=== PATIENT | female | born 1985 | race Hispanic/Latino ===

== ENCOUNTER 2018-09-19 10:12 | Day surgery (SDC) | payer BC ==
[2018-09-19 10:45] VITALS: BMI 35.9
[2018-09-19 10:49] VITALS: BP 123/92; TEMP 98.2
--- NOTE | 2018-09-19 11:56 | PDOC.LDHP ---
Labor and Delivery H&P Chief complaint: contractions HPI: 33 y/o at 39w2d, patient of Dr. Anne, presents with ctx q 5-10 mins. Denies VB, LOF, or decreased FM. ROS neg for HEENT, cv, pulm, gi, gu, neuro, psych, skin, musculoskeletal or constitutional symptoms other than mentioned above. OB History Details: 4 prior term SVDs Current complications: none Past Medical History: Migraines Current medications: pre-arslan vitamins Previous surgical history: none Allergies/Adverse Reactions: Allergies Allergy/AdvReac Type Severity Reaction Status Date / Time No Known Allergies Allergy Verified 09/19/18 10:48 Social history: none - Physical Exam Vital signs reviewed and normal: yes General: NAD, resting Lungs: nonlabored breathing Abdomen: gravid Extremeties: no edema FHT: category 1 (140s, mod variability, + accels, no decels) [place] contractions every: 5-7 mins - Vaginal Exam cm dilated: 4 (unchanged after 1 hour) Effacement: 50% Station: -2 - Assessment 33 y/o at 39w2d with no e/o active labor. status reassuring with reactive NST. - Plan -: D/c home with precautions.
== END 2018-09-19 12:00 | disposition home or self-care (01) ==
LOC: L&D/OP 10:12
PROVIDERS: ATTEND Family Medicine
DX: O47.1 False labor at or after 37 completed weeks of gestation (principal); Z3A.39 39 weeks gestation of pregnancy; Z79.899 Other long term (current) drug therapy
CPT/HCPCS: 99283

== ENCOUNTER 2018-09-21 08:04 | Inpatient (IN) | payer BC ==
[2018-09-21 08:45] VITALS: BMI 34.8
[2018-09-21] MEDS ORDERED: Lidocaine 1% (PF) 30 ML VIAL ONE (09:21)
[2018-09-21] MEDS ORDERED: NS / Oxytocin 40 units/1000ml 1,000 ML ONE (09:21)
[2018-09-21] MEDS ORDERED: Ondansetron PF 4 MG/2 ML Vial IVP PRN (09:55)
[2018-09-21] MEDS ORDERED: Adacel (T-DAP) 0.5 ML SYRINGE IM ONE (09:55)
[2018-09-21] MEDS ORDERED: HYDROcodone/Acetaminophen 5/325 mg Tablet PO PRN ×2 (09:55)
[2018-09-21] MEDS ORDERED: Milk Of Magnesia 30 ML UDCUP PO PRN (09:55)
[2018-09-21] MEDS ORDERED: diphenhydrAMINE 25 MG CAP PO PRN (09:55)
[2018-09-21] MEDS ORDERED: Benzocaine/Menthol 20-0.5% 60 ML CAN TOP PRN (09:55)
[2018-09-21] MEDS ORDERED: Bisacodyl 10 MG SUPP PR PRN (09:55)
[2018-09-21] MEDS ORDERED: Lanolin Ointment 7 GM TUBE TOP PRN (09:55)
[2018-09-21] MEDS ORDERED: NS / Oxytocin 40 units/1000ml 1,000 ML IV SCH (10:00)
[2018-09-21 11:32] LABS: Hemoglobin 12.8 g/dL (12.0-16.0); Mean Corpuscular HGB CONC 33.3 g/dL (32.0-36.0); Mean Corpuscular Hemoglobin 28.8 pg (27.0-31.0); Mean Corpuscular Volume 86.6 fL (78.0-98.0); Mean Platelet Volume 9.9 fL (7.4-10.4); Platelet Count 224 thou/uL (130-400); RBC Distribution Width 12.7 % (11.5-14.5); Red Blood Cell (RBC) Count 4.43 mill/uL (4.20-5.40); White Blood Cell (WBC) Count 10.3 thou/uL (4.8-10.8)
[2018-09-21 12:03] LABS: HIV (1/2) Antibody/Antigen Non-Reactive (NonReactive); HIV 1/2 INDEX 0.19 S/CO (<1.00)
[2018-09-21 12:27] LABS: Syphilis Antibody Nonreactive (Nonreactive); Syphilis Antibody Index 0.03 S/CO (<1.00 Non-Reactive)
[2018-09-21] MEDS: Ibuprofen 800 MG TAB PO SCH ×2 (13:40→21:20)
[2018-09-21] MEDS: Ferrous Sulfate 325 MG TAB PO SCH (14:18)
[2018-09-21] MEDS: Docusate Calcium (SURFAK) 240 MG CAP PO SCH (21:20)
[2018-09-22] MEDS: Ibuprofen 800 MG TAB PO SCH ×2 (04:54→14:05)
[2018-09-22 05:52] LABS: Hemoglobin 10.7 g/dL (12.0-16.0); Mean Corpuscular HGB CONC 33.6 g/dL (32.0-36.0); Mean Corpuscular Hemoglobin 29.3 pg (27.0-31.0); Mean Corpuscular Volume 87.1 fL (78.0-98.0); Mean Platelet Volume 9.1 fL (7.4-10.4); Platelet Count 207 thou/uL (130-400); RBC Distribution Width 12.6 % (11.5-14.5); Red Blood Cell (RBC) Count 3.66 mill/uL (4.20-5.40); White Blood Cell (WBC) Count 9.3 thou/uL (4.8-10.8)
[2018-09-22] MEDS: Docusate Calcium (SURFAK) 240 MG CAP PO SCH (09:56)
[2018-09-22] MEDS: Ferrous Sulfate 325 MG TAB PO SCH (09:56)
[2018-09-22 12:12] VITALS: BP 123/68; TEMP 98.2
== END 2018-09-22 16:50 | disposition home or self-care (01) | DRG 807 ==
LOC: L&D/OP 08:04 → L&D 08:26 → 3SW 12:08
PROVIDERS: ADMIT Family Medicine; ATTEND Family Medicine
PROC: 10E0XZZ Delivery of Products of Conception, External Approach (ICD-10-PCS; principal; 2018-09-21)
PROC: 10907ZC Drainage of Amniotic Fluid, Therapeutic from Products of Conception, Via Natural or Artificial Opening (ICD-10-PCS; 2018-09-21)
DX: O36.63X0 Maternal care for excessive fetal growth, third trimester, not applicable or unspecified (principal); Z37.0 Single live birth; Z3A.39 39 weeks gestation of pregnancy; O32.2XX0 Maternal care for transverse and oblique lie, not applicable or unspecified
CPT/HCPCS: 36415; 85027; 86780; 86850; 86900; 86901; 87389; 99283; 99285; J2001